=== PATIENT | male | born 1965 | race Hispanic/Latino ===

== ENCOUNTER 2017-11-19 14:35 | Outpatient (CLI) | payer BC ==
--- NOTE | 2017-11-19 15:06 | RAD ---
CHEST TWO VIEWS: History: Cough. FINDINGS: No comparison. Cardiac silhouette and pulmonary vasculature are unremarkable. Mediastinum is midline. There is no co nfluent airspace consolidation, pneumothorax, or pleural fluid evident. IMPRESSION: No active cardiopulmonary abnormalities. POS: [facility]
== END 2017-11-19 14:36 | disposition home or self-care (01) ==
LOC: SCSRAD 14:35
PROVIDERS: ATTEND Family Medicine
DX: J20.9 Acute bronchitis, unspecified (principal)
CPT/HCPCS: 71046

== ENCOUNTER 2021-02-22 14:30 | Outpatient (CLI) | payer BC | END 2021-02-22 14:31 | LOC: CTENTCT 14:30 | PROVIDERS: ATTEND Student in an Organized Health Care Education/Training Program | DX: J32.9 Chronic sinusitis, unspecified (principal) | CPT/HCPCS: 70486 ==

== ENCOUNTER 2021-03-26 07:35 | Day surgery (SDC) | payer BC ==
[2021-03-25 09:12] VITALS: BMI 25.1
[2021-03-26] MEDS ORDERED: Midazolam HCl 2 mg/2 ml Vial ONE (08:56)
[2021-03-26] MEDS ORDERED: AFRIN NASAL MIST 15 ML BOT ONE ×2 (08:56→10:12)
[2021-03-26] MEDS ORDERED: EPINEPHrine 1 MG/ML AMP ONE (10:12)
[2021-03-26] MEDS ORDERED: Lidocaine 1% w/Epinephrine 1:100K 20 ML VIAL ONE (10:12)
[2021-03-26] MEDS ORDERED: Fentanyl 250 MCG/5 ML VIAL ONE (10:16)
[2021-03-26] MEDS ORDERED: Propofol 500 MG/50 ML VIAL ONE (10:17)
[2021-03-26] MEDS ORDERED: Propofol 1,000 MG/100 ML VIAL IV ONE (10:17)
[2021-03-26] MEDS ORDERED: PROPOFOL 200 MG/20 ML VIAL ONE (10:24)
[2021-03-26] MEDS ORDERED: Glycopyrrolate 0.2 MG/ML 5 ML SYRINGE ONE ×2 (10:24→14:24)
[2021-03-26] MEDS ORDERED: ePHEDrine Sulfate 50 MG/10 ML VIAL ONE (10:24)
[2021-03-26] MEDS ORDERED: diphenhydrAMINE 50 MG/ML VIAL ONE (10:24)
[2021-03-26] MEDS ORDERED: Ondansetron PF 4 MG/2 ML Vial ONE ×2 (10:24→14:22)
[2021-03-26] MEDS ORDERED: Rocuronium Bromide 10 MG/ML (10ML VIAL) ONE (10:24)
[2021-03-26] MEDS ORDERED: Dexamethasone 20 MG/5 ML VIAL ONE (10:24)
[2021-03-26] MEDS ORDERED: Triamcinolone 40 MG/ML VIAL ONE (13:43)
[2021-03-26] MEDS ORDERED: Fentanyl 100 MCG/2 ML VIAL ONE (14:20)
[2021-03-26] MEDS ORDERED: Labetalol HCl 100 MG/20 ML VIAL ONE (14:56)
[2021-03-26] MEDS ORDERED: hydrALAZINE 20 MG/ML VIAL ONE (15:16)
[2021-03-26] MEDS ORDERED: Hydrocodone-Acetamin 15 ML UDCUP ONE (17:22)
== END 2021-03-26 18:25 | disposition home or self-care (01) ==
LOC: SDC 07:35
PROVIDERS: ATTEND Student in an Organized Health Care Education/Training Program
PROC: 09BS8ZZ Excision of Right Frontal Sinus, Via Natural or Artificial Opening Endoscopic (ICD-10-PCS; principal; 2021-03-26)
PROC: 09BU8ZZ Excision of Right Ethmoid Sinus, Via Natural or Artificial Opening Endoscopic (ICD-10-PCS; principal; 2021-03-26)
PROC: 09BV8ZZ Excision of Left Ethmoid Sinus, Via Natural or Artificial Opening Endoscopic (ICD-10-PCS; principal; 2021-03-26)
PROC: 8E09XBZ Computer Assisted Procedure of Head and Neck Region (ICD-10-PCS; principal; 2021-03-26)
PROC: 099R8ZZ Drainage of Left Maxillary Sinus, Via Natural or Artificial Opening Endoscopic (ICD-10-PCS; principal; 2021-03-26)
PROC: 099W8ZZ Drainage of Right Sphenoid Sinus, Via Natural or Artificial Opening Endoscopic (ICD-10-PCS; principal; 2021-03-26)
PROC: 09BT8ZZ Excision of Left Frontal Sinus, Via Natural or Artificial Opening Endoscopic (ICD-10-PCS; principal; 2021-03-26)
PROC: 099X8ZZ Drainage of Left Sphenoid Sinus, Via Natural or Artificial Opening Endoscopic (ICD-10-PCS; principal; 2021-03-26)
PROC: 09BL8ZZ Excision of Nasal Turbinate, Via Natural or Artificial Opening Endoscopic (ICD-10-PCS; principal; 2021-03-26)
PROC: 099Q8ZZ Drainage of Right Maxillary Sinus, Via Natural or Artificial Opening Endoscopic (ICD-10-PCS; principal; 2021-03-26)
DX: J32.9 Chronic sinusitis, unspecified (principal); J34.2 Deviated nasal septum; J33.0 Polyp of nasal cavity; Z79.899 Other long term (current) drug therapy; J45.909 Unspecified asthma, uncomplicated
CPT/HCPCS: 93005; 93010; C2625; J0171; J0360; J1100; J1200; J2250; J2405; J2704; J3010; J3301